=== PATIENT | male | born 1980 | race Caucasian/White ===

== ENCOUNTER 2016-10-05 11:05 | Emergency (ER) | payer BC, OTHER ==
[2016-10-05] MEDS: CEPHALEXIN 500MG STARTER PACK 4 CAP BTL PO STA (13:18)
[2016-10-05] MEDS: methylPREDNISolone SOD SUCCI 125 MG/2 ML VIAL IM ONE (13:19)
[2016-10-05 13:24] VITALS: BP 106/63; PULSE 84; RESP 18; TEMP 98.3
--- NOTE | 2016-10-05 13:28 | ED ---
General Adult HPI - General Chief complaint: Skin/Abscess/Foreign Body Stated complaint: Rash Time Seen by Provider: 10/05/16 13:02 Source: patient, RN notes reviewed, old records reviewed Mode of arrival: ambulatory Limitations: no limitations - History of Present Illness Initial comments: Patient is a 35 year old male with pruritic rash on his arms aproximatley 4-5 days after handling wound form a brush pile. Patient reports he believes he has poison oak. Patient states that he has scratched at it and believes he has a superficial infection. Patient states that it is over bilateral forearms and the lesions are only where the wood had scratched his arms. He states that his tetanus vaccination is up to date. Denies any fever chills, nausea, vomiting, chest pain, shortness of breath, headache. - Related Data Previous Rx's Medication Instructions Recorded Cephalexin [Keflex] 500 mg PO Q8HR #21 cap 10/05/16 predniSONE 10 mg PO DAILY #42 tab 10/05/16 Allergies Allergy/AdvReac Type Severity Reaction Status Date / Time Penicillins Allergy Rash/Hives Verified 10/05/16 11:10 Review of Systems ROS Statement: Those systems with pertinent positive or pertinent negative responses have been documented in the HPI. ROS Other: All systems not noted in ROS Statement are negative. Past Medical History Additional Past Medical History / Comment(s): back pain History of Any Multi-Drug Resistant Organisms: None Reported Past Surgical History: No Surgical Hx Reported Past Psychological History: No Psychological Hx Reported Smoking Status: Current every day smoker Past Alcohol Use History: Occasional Past Drug Use History: None Reported General Exam Limitations: no limitations General appearance: alert, in no apparent distress Head exam: Present: atraumatic, normocephalic, normal inspection Eye exam: Present: normal appearance, PERRL, EOMI. Absent: scleral icterus, conjunctival injection, periorbital swelling ENT exam: Present: normal exam, mucous membranes moist Neck exam: Present: normal inspection. Absent: tenderness, meningismus, lymphadenopathy Respiratory exam: Present: normal lung sounds bilaterally. Absent: respiratory distress, wheezes, rales, rhonchi, stridor Cardiovascular Exam: Present: regular rate, normal rhythm, normal heart sounds. Absent: systolic murmur, diastolic murmur, rubs, gallop, clicks GI/Abdominal exam: Present: soft, normal bowel sounds. Absent: distended, tenderness, guarding, rebound, rigid Extremities exam: Present: normal inspection, full ROM, normal capillary refill. Absent: tenderness, pedal edema, joint swelling, calf tenderness Back exam: Present: normal inspection Neurological exam: Present: alert, oriented X3, CN II-XII intact Psychiatric exam: Present: normal affect, normal mood Skin exam: Present: warm, dry, intact, normal color. Absent: rash Course Vital Signs 10/05/16 10/05/16 11:07 13:23 Temperature 97.3 F L 98.3 F Pulse Rate 90 84 Respiratory 16 18 Rate Blood Pressure 138/80 106/63 O2 Sat by Pulse 99 100 Oximetry Medical Decision Making - Medical Decision Making Patient is a 35 year old male with pruritic rash on his arms aproximatley 4-5 days after handling wound form a brush pile. Patient reports he believes he has poison oak. Patient states that he has scratched at it and believes he has a superficial infection. Patient states that it is over bilateral forearms and the lesions are only where the wood had scratched his arms. Patient did put calamine lotion on the arms, evidence of serous like fluid from some of the lesions. Culture was obtained. Patient was given IM solumedrol and steroid taper for 12 days. I advised patient to follow up with PCP if symptoms continue as well as continue to take benadryl. Patient also given Rx for Keflex, as there appears to be superficial infection overtop of the skin which chould be related to scratching. Patient advised on return parameters and understands treatment plan. Disposition Clinical Impression: Poison oak dermatitis, Superficial bacterial infection of skin Disposition: HOME SELF-CARE Condition: Good Instructions: Poison Rosie (ED) Additional Instructions: Patient denies to continue to take Benadryl. Apply calamine lotion over the area. Patient advised to finish the steroid pack for the next 12 days. Also take the antibiotics as well. Return to emergency department if any alarming signs or symptoms occur. Prescriptions: Cephalexin [Keflex] 500 mg PO Q8HR #21 cap predniSONE 10 mg PO DAILY #42 tab Referrals: None,Stated [Primary Care Provider] - 1-2 days Mackenzie Pink MD [REFERRING] - 1-2 days Time of Disposition: 13:19
== END 2016-10-05 13:43 | disposition home or self-care (01) ==
LOC: EC 11:05
DX: L23.7 Allergic contact dermatitis due to plants, except food (principal); L08.9 Local infection of the skin and subcutaneous tissue, unspecified; B96.89 Other specified bacterial agents as the cause of diseases classified elsewhere; F17.200 Nicotine dependence, unspecified, uncomplicated; Z88.0 Allergy status to penicillin
CPT/HCPCS: 87070; 87205; 99283; 96372; J2930

== ENCOUNTER 2017-12-05 12:34 | Emergency (ER) | payer BC ==
[2017-12-05 13:03] VITALS: BP 127/81; PULSE 104; RESP 20; TEMP 98.5
--- NOTE | 2017-12-05 13:39 | ED ---
Upper Extremity HPI - General Chief Complaint: Extremity Injury, Upper Stated Complaint: RT SHOULDER INJURY Time Seen by Provider: 12/05/17 12:54 Source: patient, RN notes reviewed, old records reviewed Mode of arrival: ambulatory Limitations: no limitations - History of Present Illness Initial Comments: This patient's a 37-year-old male presents to the emergency Department chief complaint of right shoulder pain for the past 3 weeks. He reports that he was arrested on November 18. He states that he was handcuffed and for sonogram. Reports that since that time he started having some right shoulder pain. Worse with range of motion. He reports occasionally he is numbness.Patient denies any recent fever, chills, shortness of breath, chest pain, back pain, abdominal pain, nausea vomiting, numbness or tingling, dysuria or hematuria, constipation or diarrhea, headaches or visual changes, or any other current symptoms - Related Data Previous Rx's Medication Instructions Recorded Cephalexin [Keflex] 500 mg PO Q8HR #21 cap 10/05/16 predniSONE 10 mg PO DAILY #42 tab 10/05/16 Ibuprofen [Motrin] 600 mg PO Q8HR PRN #15 tab 12/05/17 traMADol HCl [Ultram] 50 mg PO Q6HR PRN 3 Days #12 tab 12/05/17 Allergies Allergy/AdvReac Type Severity Reaction Status Date / Time Penicillins Allergy Rash/Hives Verified 12/05/17 13:03 Review of Systems ROS Statement: Those systems with pertinent positive or pertinent negative responses have been documented in the HPI. ROS Other: All systems not noted in ROS Statement are negative. Past Medical History Additional Past Medical History / Comment(s): back pain History of Any Multi-Drug Resistant Organisms: None Reported Past Surgical History: No Surgical Hx Reported Past Psychological History: No Psychological Hx Reported Smoking Status: Current every day smoker Past Alcohol Use History: Occasional Past Drug Use History: None Reported General Exam - General Exam Comments Initial Comments: Well-appearing 37-year-old male. Alert. No acute distress. Limitations: no limitations General appearance: alert, in no apparent distress Head exam: Present: atraumatic, normocephalic, normal inspection Eye exam: Present: normal appearance, PERRL, EOMI. Absent: scleral icterus, conjunctival injection, periorbital swelling ENT exam: Present: normal exam, mucous membranes moist Neck exam: Present: normal inspection. Absent: tenderness, meningismus, lymphadenopathy Respiratory exam: Present: normal lung sounds bilaterally Cardiovascular Exam: Present: regular rate, normal rhythm, normal heart sounds. Absent: systolic murmur, diastolic murmur, rubs, gallop, clicks Right Shoulder Exam: Present: normal inspection, tenderness over AC joint (Patient has limited flexion and extension. Abduction to 90.). Absent: full ROM, laceration, ecchymosis, deformity, crepitus Upper Arm exam: Present: normal inspection, full ROM Elbow exam: Present: normal inspection, full ROM Forearm Wrist exam: Present: normal inspection, full ROM Hand Wrist exam: Present: normal inspection, full ROM Neuro motor exam: Present: wrist extension intact, thumb opposition intact, thumb IP flexion intact, thumb adduction intact, fingers 2-5 abduction intact Vascular: Present: normal capillary refill Back exam: Present: normal inspection Neurological exam: Present: alert, oriented X3, CN II-XII intact Course Vital Signs 12/05/17 13:01 Temperature 98.5 F Pulse Rate 104 H Respiratory 20 Rate Blood Pressure 127/81 O2 Sat by Pulse 96 Oximetry Medical Decision Making - Medical Decision Making 37-year-old male presents emergency Department chief complaint of right shoulder pain after an accident and he was handcuffed 2 weeks ago. Pain with range of motion. He has limited flexion and extension of the shoulder. Normal pulses and sensation however. X-rays were normal. X-ray of the before meals joints is no separation. Patient informed of x-ray results. Placed in a sling. Will follow-up with solar site assessment specialist. Discussed anti-inflammatory medication and to practice range of motion. Discussed possibility for shoulder syndrome. Patient understands to plan will comply. Return parameters were discussed. - Radiology Data Radiology results: report reviewed No Acute fracture dislocation of the right shoulder. No evidence of before meals separation. Disposition Clinical Impression: Right shoulder injury Disposition: HOME SELF-CARE Condition: Good Instructions: Rotator Cuff Injury (ED) Additional Instructions: Patient denies ice the shoulder. Follow-up with solar site assessment specialist. Return to the emergency department if any alarming signs or symptoms occur. Prescriptions: Ibuprofen [Motrin] 600 mg PO Q8HR PRN #15 tab PRN Reason: Pain traMADol HCl [Ultram] 50 mg PO Q6HR PRN 3 Days #12 tab PRN Reason: Pain Is patient prescribed a controlled substance at d/c from ED?: Yes If prescribed controlled substance>3 days was MAPS reviewed?: No When asked, does pt state using other controlled substances?: No Referrals: None,Stated [Primary Care Provider] - 1-2 days Mian Souza DO [Doctor of Osteopathic Medicine] - 1-2 days Time of Disposition: 14:13
--- NOTE | 2017-12-05 14:04 | XR ---
EXAMINATION TYPE: XR shoulder complete RT DATE OF EXAM: 12/05/2017 CLINICAL HISTORY: pain TECHNIQUE: Three views of the Right shoulder are obtained. COMPARISON: None. FINDINGS: There is no acute fracture/dislocation evident in the right shoulder. The acromioclavicul ar and glenohumeral joint spaces appear within normal limits. The visualized ribs are intact and unr emarkable. IMPRESSION: There is no acute fracture or dislocation in the right shoulder.
--- NOTE | 2017-12-05 14:06 | XR ---
EXAMINATION TYPE: XR AC joint BILAT DATE OF EXAM: 12/05/2017 COMPARISON: EXAMINATION TYPE: XR AC joint BILAT DATE OF EXAM: 12/05/2017 COMPARISON: NONE HISTORY: Trauma and pain TECHNIQUE: 2 views of both acromioclavicular joints with and without weights FINDINGS: Acromion clavicular joints show normal alignment, bone mineralization, joint space IMPRESSION: Normal, no evident acromioclavicular joint separation
== END 2017-12-05 14:17 | disposition home or self-care (01) ==
LOC: EC 12:34
DX: S49.91XA Unspecified injury of right shoulder and upper arm, initial encounter (principal); F17.200 Nicotine dependence, unspecified, uncomplicated; Z88.0 Allergy status to penicillin; X58.XXXA Exposure to other specified factors, initial encounter
CPT/HCPCS: 73050; 99284